=== PATIENT | female | born 1980 | race Caucasian/White ===

== ENCOUNTER 2019-01-22 09:04 | Emergency (ER) | payer MEDICAID ==
[2019-01-22] MEDS: KETOROLAC 60 MG INJ IM (09:34)
== END 2019-01-22 11:05 | disposition home or self-care (01) ==
LOC: FTE 11:05
DX: M54.2 Cervicalgia (principal)
CPT/HCPCS: 72040; 72072; 72100; 81025; 96372; 99284-25